=== PATIENT | male | born 1945 | race Caucasian/White ===

== ENCOUNTER 2024-03-03 19:55 | Inpatient (IN) | payer MEDICARE, SELFPAY ==
--- NOTE | ~2024-03-03 | CT_ITS ---
EXAMINATION: CT ABDOMEN AND PELVIS WITH CONTRAST CLINICAL INFORMATION: Epigastric pain. Distention. COMPARISON: None available. TECHNIQUE: Multidetector volumetric images were obtained from the superior aspect of the liver through the pubic symphysis following administration 85 mL of Omnipaque 350 intravenous contrast. Sagittal and coronal reformatted images were obtained on the technologist's workstation. Oral contrast: No This CT examination was performed using dose optimization techniques as appropriate, variously including the following: *Automated exposure control *Adjustment of mA and/or kV according to patient size (this includes techniques or standardized protocols for targeted exams where dose is matched to indication/reason for exam; i.e. extremities or head) *Use of iterative reconstruction technique DLP: 621 mGy-cm FINDINGS: LUNG BASES: Partial visualization of dense calcific plaque within the left anterior descending coronary artery LIVER, GALLBLADDER, AND BILIARY TREE: The liver is normal in size, shape, and attenuation. No focal hepatic lesion or biliary ductal dilatation is present. A radiodense gallstone measuring 1.2 cm in diameter is present in the neck of the gallbladder. Mild reticulation of the fat adjacent to the gallbladder is present and prominent submucosal enhancement of the gallbladder is noted. The gallbladder is distended. Findings are suspicious for acute cholecystitis. No dilated duct dilatation identified. PANCREAS: Unremarkable. SPLEEN: Unremarkable. ADRENAL GLANDS: Unremarkable. KIDNEYS AND URETERS: A 2.3 cm diameter rounded low-density focus is present in left kidney and is most consistent with a benign, simple cyst warranting additional imaging follow-up. BLADDER: Unremarkable. GASTROINTESTINAL TRACT: Normal appendix. No intestinal dilatation or mural thickening. No free intraperitoneal fluid or gas collections. Normal appearance of the stomach and duodenum. ABDOMINAL WALL: No significant hernia is appreciated. LYMPH NODES: Normal. VASCULAR: Moderate scattered calcific atherosclerosis PELVIC VISCERA: Normal appearance of the prostate and femoral vesicles. OSSEOUS STRUCTURES: Scattered subcentimeter well-circumscribed low-density foci (-50 Hounsfield unit) within the left and right iliac bodies. These regions demonstrate macroscopic fat density and may represent areas of fat deposition or intraosseous hemangiomas. These findings are benign in appearance. Similar appearing focus is present in the inferior aspect of the L3 vertebral body measuring 6 mm diameter and may represent a hemangioma. Similar focus is noted in the L2 vertebral body. CT/CT abdomen pelvis w IV con IMPRESSION: 1. Findings suspicious for acute cholecystitis. A 1.2 cm radiodense gallstone is present in the neck of the gallbladder. The gallbladder is distended with mild pericholecystic inflammatory changes. No biliary duct dilatation. 2. Normal appendix. No intestinal dilatation. No free intraperitoneal fluid or gas collections. 3. Partial visualization of dense calcific plaque within the left anterior descending coronary artery. Electronically signed by: Deandre Abarca MD 03/04/2024 03:55 AM [facility]
[2024-03-03 20:07] VITALS: BP 181/68; PULSE 70; RESP 16; O2SAT 99; BMI 26.6
--- NOTE | 2024-03-03 20:10 | ECG_ITS ---
Test Reason : CP Blood Pressure : / mmHG Vent. Rate : 061 BPM Atrial Rate : 061 BPM P-R Int : 156 ms QRS Dur : 088 ms QT Int : 400 ms P-R-T Axes : 036 -16 007 degrees QTc Int : 402 ms Sinus rhythm with occasional Premature ventricular complexes Otherwise normal ECG No previous ECGs available Referred By: Generic ED Physician Electronically Signed By:Ehsan Mccullough
[2024-03-03 20:28] LABS: MANUAL DIFF FLAG NO
[2024-03-03 20:32] LABS: Basophils Percent Auto 0.4 % (0-2); Eosinophils Absolute Auto 0.2 X10*3/uL (0.0-0.4); Eosinophils Percent Auto 1.8 % (0-4); Hemoglobin 11.2 g/dl (14.0-18.0); Imm Gran Abs Auto 0.03 X10*3/uL (0.00-0.03); Imm Gran Pct Auto 0.4 % (0.0-0.4); Lymphocytes Percent Auto 24.1 % (20-40); Mean Corpuscular HGB Conc 32.9 g/dl (31.0-36.0); Mean Corpuscular Hemoglobin 28.8 pg (27.0-33.0); Mean Corpuscular Volume 87.4 fL (80.0-98.0); Mean Platelet Volume 9.4 fL (9.4-12.4); Monocytes Absolute Auto 0.8 X10*3/uL (0.1-1.2); Monocytes Percent Auto 9.7 % (2-11); Neutrophils Absolute Auto 5.2 x10*3/uL (2.0-8.3); Neutrophils Percent Auto 63.6 % (45-73); Platelet Count 213 X10*3/uL (160-400); Red Blood Count 3.89 X10*6/uL (4.60-5.80); Red Cell Distribution Width 13.5 % (11.0-16.0); White Blood Count 8.1 X10*3/uL (4.8-10.8)
[2024-03-03 20:47] LABS: Alanine Aminotransferase 21 U/L (0-40); Albumin Level 4.3 g/dL (3.5-5.0); Alkaline Phosphatase 114 U/L (39-117); Anion Gap 12 (12-20); Aspartate Amino Transferase 33 U/L (5-37); Bilirubin Total 0.2 mg/dL (0.0-1.0); Blood Urea Nitrogen 27 mg/dL (9-16); Calcium 9.4 mg/dL (8.4-10.2); Carbon Dioxide 25 mmol/L (22-29); Chloride 108 mmol/L (96-108); Creatinine Clr Calc Pharmacy 63.7; Estimated Glomerular Filt Rate > 60; Glucose Random 129 mg/dL (60-115); Potassium 4.5 mmol/L (3.3-5.1); Sodium 140 mmol/L (135-145); Total Protein 7.1 g/dL (6.5-8.0)
[2024-03-03 20:55] LABS: Troponin-I High Sensitivity 4.3 ng/L (<3.5-35.0)
[2024-03-04] VITALS (12 sets, daily range): BP systolic 115–162; BP diastolic 53–84; PULSE 64–117; RESP 16–20; TEMP 36.6–37.7; O2SAT 93–98; BMI 29.9
--- NOTE | 2024-03-04 | ECG_ITS ---
Test Reason : tachy Blood Pressure : / mmHG Vent. Rate : 096 BPM Atrial Rate : 096 BPM P-R Int : 142 ms QRS Dur : 080 ms QT Int : 312 ms P-R-T Axes : 018 -25 013 degrees QTc Int : 394 ms Poor data quality Sinus rhythm with marked sinus arrhythmia Nonspecific ST abnormality Abnormal ECG When compared with ECG of 03-MAR-2024 20:09, Premature ventricular complexes are no longer Present Vent. rate has increased BY 35 BPM Referred By: Generic ED Physician Electronically Signed By:Ehsan Mccullough
--- NOTE | 2024-03-04 02:23 | PC.NURSE ---
Addendum entered by Emily Smith 03/04/24 02:36: pt threw up small amount of bile. shaking. made aware. bilat 20g iv established. pt remains axox4 speaking full clear sentences. skin warm and dry. Original Note: pt from wr to [id number], initial triage for R. lower chest pain which pt reports is now mid/umbilical abd pain and lower back pain. bp improved however now tachy. repeat ekg ordered and trop. MD cordero made aware and suggested for abdominal imaging. states will see pt at bedside.
--- NOTE | 2024-03-04 02:25 | ED_ITS ---
HPI - Chest Pain General Chief Complaint: Chest Pain Stated Complaint: Rib pain Time Seen by Provider: 03/04/24 02:25 Source: patient Mode of arrival: ambulatory Limitations: no limitations History of Present Illness ED Provider: Dr. Andrés Post HPI narrative: 78-year-old male with no significant past medical history who presents emergency department for evaluation of right upper quadrant and right-sided chest pain. Patient ate sausage in rice that around 11:30 hours for lunch. Patient ate ice cream at15:00 hours. He states that at 19:00 hours he then developed right- sided chest and abdominal pain. He states the pain was a sharp, constant pain that did not radiate to his back or shoulders. He states that he felt bloated. He states that since he has been here in the emergency department the pain is resolved but he still has a bloated sensation. He had 1 episode of vomiting in the emergency department and he states he does have nausea. He denied fever, chills, cough. He states that he walks 10 miles a day without having any chest pain. He denies shortness of breath or dyspnea on exertion. Related Data Allergies Allergy/AdvReac Type Severity Reaction Status Date / Time No Known Allergies Allergy Verified 03/03/24 20:08 Review of Systems 2 Review of Systems: Yes all other systems are reviewed and are negative [facility] Past Medical History [facility] Narrative: Social history: He denies tobacco use. He states that he rarely drinks alcohol. He denies drug use. Social History Social History Smoked in Last 30 Days: No Use of substances other than those prescribed or required for medical reasons: No Advance Directives: No Advance Directives Information Provided: Yes Do you have a plan to hurt others: No Plan Physical Exam 2 Vital Signs: Vital Signs: Last Vital Signs Temp 98.1 F 03/04/24 02:22 Pulse 84 03/04/24 02:47 Resp 20 03/04/24 02:22 BP 141/57 H 03/04/24 02:22 Pulse Ox 98 03/04/24 02:22 O2 Del Method Room Air 03/04/24 02:22 BMI result Body Mass Index 26.6 Vital signs revealed an elevated blood pressure of 141/57 and an elevated heart rate of 117. Exam: General: Awake, alert in no distress Head: Normocephalic, atraumatic EENT: PERRL, Lids normal, sclera normal, conjunctiva normal, nose normal , ears normal, throat without erythema or exudates Neck: Supple, no adenopathy Lung: breath sounds symmetric, no wheezing, rales or rhonchi Chest: symmetric movement, nontender Heart: regular rate and rhythm, normal S1, S2 no murmurs or rubs Abdomen: soft, mild right upper quadrant tenderness with a negative James sign, mild to moderate epigastric tenderness, abdomen appears to be distended , diastasis recti with sitting up, normoactive bowel sounds , no voluntary or involuntary guarding Back: no vertebral tenderness, no CVAT Extremities: no deformities, moves all extremities symmetrically Neuro: Awake, alert, oriented, normal speech, cranial nerves intact, moves all extremities symmetrically Psych: Pleasant, cooperative Medications Administered Discontinued Medications Generic Name Dose Route Start Last Admin Trade Name Freq PRN Reason Stop Dose Admin Sodium Chloride 1,000 mls @ 999 mls/hr 03/04/24 02:42 03/04/24 03:31 Ns IV 03/04/24 03:42 999 mls/hr .Q1H1M STA Administration Iohexol 85 ml 03/04/24 03:15 03/04/24 03:16 Iohexol 350 Mg/Ml 100 Ml Infus..Btl IV 03/04/24 03:16 85 ml ONCE ONE Administration Ondansetron HCl 4 mg 03/04/24 02:42 03/04/24 03:31 Ondansetron Hcl 4 Mg/2 Ml Vial IVPUSH 03/04/24 02:43 Not Given ONCE ONE Medical Decision Making Medical Decision Making MDM Narrative: 78-year-old male with no significant past medical history who presents emergency department for evaluation of right upper quadrant and right-sided chest pain. Patient ate sausage in rice that around 11:30 hours for lunch. Patient at ice cream at 15:00 hours. He states that at 19:00 hours he then developed right- sided chest and sharp abdominal pain with no radiation to his back or shoulder, he did feel bloated and had 1 episode of vomiting in the emergency department. Physical exam did reveal right upper quadrant tenderness otherwise was unremarkable. The patient did appear to be distended. Differential diagnosis: ?Includes but is not limited to pancreatitis, cholecystitis, biliary colic, gastritis, myocardial infarction, myocardial ischemia, bowel obstruction Course: 02:50 My interpretation patient's laboratory evaluation: WBC normal 8100. Normocytic anemia with an H&H of 11.2 and 34.0. Platelet count was normal 213,000. BUN was elevated at 27 with normal creatinine of 0.94. Glucose elevated 129. LFTs were normal. Troponin was 4.3. I ordered normal saline IV x1 L, Zofran 4 mg IV for nausea and CT scan of the abdomen pelvis with IV contrast for further evaluation of his symptoms. Patient was currently pain-free but still feels like his abdomen is distended. 04:38 Repeat troponin was unchanged at 4.4 which is reassuring suggesting the patient did not have myocardial infarction or myocardial injury is the cause of his chest pain. CT scan of the abdomen pelvis with IV contrast is concerning for acute cholecystitis with 1.2 cm gallstone in the neck of the gallbladder. I did discuss this patient's presentation over tiger text with the covering surgeon Dr. Moreno and she will admit the patient to her service for further treatment. Admission/Observation Consideration of admission/observation: Escalation of care including admission/observation considered (Yes) Consult Healthcare Provider Management of the patient was discussed with: Field Sampling Technician (Surgeon on-call, Dr. Moreno) Lab Data MDM Lab Attestation statement: I reviewed the patient's lab results. 03/03/24 20:24 03/03/24 20:24 Labs: Lab Results 03/03/24 03/04/24 Range/Units 20:24 02:35 WBC 8.1 (4.8-10.8) X10*3/uL RBC 3.89 L (4.60-5.80) X10*6/uL Hgb 11.2 L (14.0-18.0) g/dl Hct 34.0 L (42.0-52.0) % MCV 87.4 (80.0-98.0) fL MCH 28.8 (27.0-33.0) pg MCHC 32.9 (31.0-36.0) g/dl RDW 13.5 (11.0-16.0) % Plt Count 213 (160-400) X10*3/uL MPV 9.4 (9.4-12.4) fL Immature Gran % (Auto) 0.4 (0.0-0.4) % Neut % (Auto) 63.6 (45-73) % Lymph % (Auto) 24.1 (20-40) % [place] % (Auto) 9.7 (2-11) % Eos % (Auto) 1.8 (0-4) % Baso % (Auto) 0.4 (0-2) % Lymph # (Auto) 2.0 (1.2-4.9) X10*3/uL [place] # (Auto) 0.8 (0.1-1.2) X10*3/uL Eos # (Auto) 0.2 (0.0-0.4) X10*3/uL Baso # (Auto) 0.0 (0.0-0.2) X10*3/uL Abs Immat Gran (auto) 0.03 (0.00-0.03) X10*3/uL Absolute Neuts (auto) 5.2 (2.0-8.3) x10*3/uL Absolute Nucleated RBC 0.000 (0.0-0.012) X10*3/uL Nucleated RBC % (auto) 0.0 (0.0-0.2) /100WBC Sodium 140 (135-145) mmol/L Potassium 4.5 (3.3-5.1) mmol/L Chloride 108 (96-108) mmol/L Carbon Dioxide 25 (22-29) mmol/L Anion Gap 12 (12-20) BUN 27 H (9-16) mg/dL Creatinine 0.94 (0.5-1.4) mg/dL Estim Creat Clear Calc 63.7 Estimated GFR > 60 Random Glucose 129 H (60-115) mg/dL Calcium 9.4 (8.4-10.2) mg/dL Magnesium 2.0 (1.6-2.6) mg/dL Total Bilirubin 0.2 (0.0-1.0) mg/dL AST 33 (5-37) U/L ALT 21 (0-40) U/L Alkaline Phosphatase 114 (39-117) U/L Troponin I High Sens 4.3 4.1 (<3.5-35.0) ng/L Total Protein 7.1 (6.5-8.0) g/dL Albumin 4.3 (3.5-5.0) g/dL Lipase 31 (8-78) U/L Independent Interpretation I performed an independent interpretation of an: EKG Interpretation: EKG 1. Done at 20:09 hours is as follows: Normal sinus rhythm with a rate of 61, normal SD interval, QRS duration QTC interval, no ST segment elevations, no ST segment depressions, inverted T-wave in V1, no PACs, no PVCs EKG 2. Done at 02:28 hours is as follows: EKG has artifact in the baseline. Normal sinus rhythm with a rate of 96, no ST segment elevation, no ST segment depression, T-waves are difficult to evaluate secondary to artifact in the baseline, no PACs, no PVCs Radiology Impression Discussion of test interpretation with radiology: I have reviewed the radiologist's reading. Radiologist Impression: XR chest 1V IMPRESSION: Normal chest. Lungs clear. Electronically signed by: Deandre Abarca MD 03/04/2024 01:04 AM [place] [id number] [address] Scan Report Signed Patient: Mickey Dueñas MR#: [id number] : 1945 Acct:[id number] Age/Sex: 78 / M ADM Date: 03/04/24 Loc: HO.ED Attending Dr: Ordering Physician: Andrés Post MD Date of Service: 03/04/24 Procedure(s): CT abdomen pelvis w IV con Accession Number(s): [id number] cc: Christiano Lucas MD; Andrés Post MD~ EXAMINATION: CT ABDOMEN AND PELVIS WITH CONTRAST FINDINGS: LIVER, GALLBLADDER, AND BILIARY TREE: The liver is normal in size, shape, and attenuation. No focal hepatic lesion or biliary ductal dilatation is present. A radiodense gallstone measuring 1.2 cm in diameter is present in the neck of the gallbladder. Mild reticulation of the fat adjacent to the gallbladder is present and prominent submucosal enhancement of the gallbladder is noted. The gallbladder is distended. Findings are suspicious for acute cholecystitis. No dilated duct dilatation identified. PANCREAS: Unremarkable. SPLEEN: Unremarkable. ADRENAL GLANDS: Unremarkable. KIDNEYS AND URETERS: A 2.3 cm diameter rounded low-density focus is present in left kidney and is most consistent with a benign, simple cyst warranting additional imaging follow-up. BLADDER: Unremarkable. GASTROINTESTINAL TRACT: Normal appendix. No intestinal dilatation or mural thickening. No free intraperitoneal fluid or gas collections. Normal appearance of the stomach and duodenum. ABDOMINAL WALL: No significant hernia is appreciated. LYMPH NODES: Normal. VASCULAR: Moderate scattered calcific atherosclerosis PELVIC VISCERA: Normal appearance of the prostate and femoral vesicles. OSSEOUS STRUCTURES: Scattered subcentimeter well-circumscribed low-density foci (-50 Hounsfield unit) within the left and right iliac bodies. These regions demonstrate macroscopic fat density and may represent areas of fat deposition or intraosseous hemangiomas. These findings are benign in appearance. Similar appearing focus is present in the inferior aspect of the L3 vertebral body measuring 6 mm diameter and may represent a hemangioma. Similar focus is noted in the L2 vertebral body. IMPRESSION: 1. Findings suspicious for acute cholecystitis. A 1.2 cm radiodense gallstone is present in the neck of the gallbladder. The gallbladder is distended with mild pericholecystic inflammatory changes. No biliary duct dilatation. 2. Normal appendix. No intestinal dilatation. No free intraperitoneal fluid or gas collections. 3. Partial visualization of dense calcific plaque within the left anterior descending coronary artery. Electronically signed by: Deandre Abarca MD 03/04/2024 03:55 AM EST Discharge Plan Discharge Patient Disposition: Admitted As Inpatient Print Language: Cymraes
[2024-03-04 02:59] LABS: Troponin-I High Sensitivity 4.1 ng/L (<3.5-35.0)
[2024-03-04 03:14] LABS: Lipase 31 U/L (8-78)
[2024-03-04] MEDS: iohexoL 350 MG/ML 100 ML INFUS..BTL 85 ML IV (03:16)
[2024-03-04] MEDS: 0.9 % Sodium Chloride 1,000 ML 999 ML IV (03:31)
--- NOTE | 2024-03-04 06:01 | PC.NURSE ---
Sister Azul Dueñas [phone]
[2024-03-04] MEDS: Morphine Sulfate 4 MG/ML CARTRIDGE IVPUSH (06:49)
[2024-03-04] MEDS: ondansetron HCL 4 MG/2 ML VIAL IVPUSH (06:50)
[2024-03-04] MEDS: 0.9 % Sodium Chloride 1,000 ML 100 ML IVCONT (07:38)
--- NOTE | 2024-03-04 07:45 | P.HPGS_ITS ---
History of Present Illness History of Present Illness Date of Service: 03/04/24 <Sarahy Maharaj PA-C - Last Filed: 03/04/24 10:40> 03/04/24 <Mauricio Gatica MD - Last Filed: 03/04/24 10:35> Chief complaint: Abdo pain <Sarahy Maharaj PA-C - Last Filed: 03/04/24 10:40> Narrative: Mickey Dueñas is a 78 year old male without any known PMH who presented to the ED last night for abd pain. He reports he developed RUQ last night around 7pm. It was sharp in nature and nonradiating. It was associated with nausea, vomiting. He has never had an episode of pain like this before. He denies fevers, chills, diarrhea, back pain, sick contacts. Work up in the ED included CBC, BMP, LFTs. CT scan abd pelvis showed distended gallbladder with impacted gallstone at neck and gallbladder wall thickening. He reports continued pain this morning. He denies any PMH or daily medications. He has not seen his primary care provider in around 50 years. He however states he walks 10 miles daily without any shortness of breath, chest pain. <Sarahy Maharaj PA-C - Last Filed: 03/04/24 10:40> Review of Systems Constitutional: Constitutional: Denies chills and Denies fever(s) <Sarahy Maharaj PA-C - Last Filed: 03/04/24 10:40> ENT: Denies dizziness <Sarahy Maharaj PA-C - Last Filed: 03/04/24 10:40> Cardiovascular: Cardiovascular: Denies chest pain, Denies palpitations and Denies dyspnea <Sarahy Maharaj PA-C - Last Filed: 03/04/24 10:40> Respiratory: Respiratory: Denies cough and Denies dyspnea <ALEXA Moy Last Filed: 03/04/24 10:40> Gastrointestinal: Gastrointestinal: Reports as per HPI, Denies constipation and Denies diarrhea <ALEXA Moy Last Filed: 03/04/24 10:40> Integumentary/Breasts: Skin/Breast: Denies rash and Denies jaundice <ALEXA Moy Last Filed: 03/04/24 10:40> Neurologic: Denies dizziness <Sarahy Maharaj PA-C - Last Filed: 03/04/24 10:40> Endocrine: Endocrine: Denies palpitations <ALEXA Moy Last Filed: 03/04/24 10:40> PMFSH Social History Social History: Social History Patient Tobacco Use Status: Former Tobacco user Smoked in Last 30 Days: No Use of substances other than those prescribed or required for medical reasons: No Advance Directives: No Advance Directives Information Provided: Yes Do you have a plan to hurt others: No Plan Nutrition Risks: No Nutritional Risk <ALEAX Moy Last Filed: 03/04/24 10:40> Meds Allergies/Adverse reactions: Allergies Allergy/AdvReac Type Severity Reaction Status Date / Time No Known Allergies Allergy Verified 03/03/24 20:08 <Sarahy Maharaj PA-C - Last Filed: 03/04/24 10:40> Active Medications: Current Medications Acetaminophen (Acetaminophen 325 Mg Tablet) 650 mg PO Q6H PRN PRN Reason: Pain, Mild (Pain Scale 1-3), fever or headache Sodium Chloride (Ns) 1,000 mls @ 100 mls/hr IVCONT .Q10H [facility] Last Admin: 03/04/24 07:38 Dose: 100 mls/hr Piperacillin Sod/Tazobactam (Sod 3.375 gm/ Sodium Chloride) 50 mls @ 100 mls/hr IV Q6H [facility] Melatonin (Melatonin 3 Mg Tablet) 6 mg PO BEDTIME PRN PRN Reason: Insomnia Morphine Sulfate (Morphine Sulfate 2 Mg/Ml Cartridge) 2 mg IVPUSH RQ4H PRN; Protocol PRN Reason: Pain, Severe (Pain Scale 7-10) Ondansetron HCl (Ondansetron Hcl 4 Mg/2 Ml Vial) 4 mg IVPUSH Q8H PRN PRN Reason: Nausea and Vomiting Sodium Chloride (0.9 % Sodium Chloride Flush 3 Ml Syringe) 3 ml IVFLUSH QSHIFT [facility] <ALEXA Moy Last Filed: 03/04/24 10:40> Physical Exam Vital Signs: Vital Signs: Last Vital Signs Temp 99.9 F 03/04/24 04:00 Pulse 104 H 03/04/24 04:00 Resp 20 03/04/24 04:00 BP 162/74 H 03/04/24 04:00 Pulse Ox 96 03/04/24 04:00 O2 Del Method Room Air 03/04/24 04:00 BMI result Body Mass Index 26.6 <Sarahy Maharaj PA-C - Last Filed: 03/04/24 10:40> Const: General: comfortable, no acute distress and alert <Sarahy Maharaj PA-C [place] Last Filed: 03/04/24 10:40> Orientation/consciousness: patient oriented x3 <Sarahy Maharaj PA-C Last Filed: 03/04/24 10:40> Neck: Neck: Yes no JVD <Sarahy Maharaj PA-C Last Filed: 03/04/24 10:40> Resp: Effort & Inspection: normal respiratory effort <Sarahy Maharaj PA-C Aislinn Last Filed: 03/04/24 10:40> GI: Inspection: Yes normal to inspection and No scar <Sarahy Maharaj PA-C Last Filed: 03/04/24 10:40> Palpation (GI): Soft to palpation, Tenderness to palpation present (GI) in the RUQ and James's sign positive and no guarding <Sarahy Maharaj PA-C Last Filed: 03/04/24 10:40> Skin: General skin exam: no rashes or lesions noted and no jaundice <Sarahy Maharaj PA-C Last Filed: 03/04/24 10:40> Neuro: General: patient oriented x3 and moves all extremities <Sarahy Maharaj PA-C Last Filed: 03/04/24 10:40> Extrem: General: Yes no clubbing, cyanosis or edema <Sarahy Maharaj PA-C Last Filed: 03/04/24 10:40> Results Results Labs: Short CBC 03/03/24 Range/Units 20:24 WBC 8.1 (4.8-10.8) X10*3/uL Hgb 11.2 L (14.0-18.0) g/dl Hct 34.0 L (42.0-52.0) % Plt Count 213 (160-400) X10*3/uL BMP 03/03/24 20:24 Sodium 140 Potassium 4.5 Chloride 108 Carbon Dioxide 25 BUN 27 H Creatinine 0.94 Calcium 9.4 Liver Function 03/03/24 Range/Units 20:24 Total Bilirubin 0.2 (0.0-1.0) mg/dL AST 33 (5-37) U/L ALT 21 (0-40) U/L Alkaline Phosphatase 114 (39-117) U/L Albumin 4.3 (3.5-5.0) g/dL <ALEXA Moy Last Filed: 03/04/24 10:40> Abdomen CT scan report/results: report reviewed and image reviewed <ALEXA Moy Last Filed: 03/04/24 10:40> Assessment and Plan (1) Acute calculous cholecystitis: Status: Acute <ALEXA Moy Last Filed: 03/04/24 10:40> 78 year old male without PMH presenting with RUQ abd pain since last night with leukocytosis and impacted gallstone, gallbladder wall thickening on imaging consistent with acute cholecystitis. It was recommended to proceed with laparoscopic choelcystectomy. Risks, benefits, alternatives of laparoscopic possible open cholecystectomy were reviewed with the patient including but not limited to bleeding, infection, numbness, pain, poor healing, injury to the liver, bowel or bile ducts, leak, retained stones and the patient wishes to proceed.? Arrangements will be made for this.?All questions were answered. <Sarahy Maharaj PA-C - Last Filed: 03/04/24 10:40> 78 year old male without PMH presenting with RUQ abd pain since last night with leukocytosis and impacted gallstone, gallbladder wall thickening on imaging consistent with acute cholecystitis. It was recommended to proceed with laparoscopic choelcystectomy. Risks, benefits, alternatives of laparoscopic possible open cholecystectomy were reviewed with the patient including but not limited to bleeding, infection, numbness, pain, poor healing, injury to the liver, bowel or bile ducts, leak, retained stones and the patient wishes to proceed.? Arrangements will be made for this.?All questions were answered. Patient seen and exam. CT abdomen and pelvis reviewed as well. Patient found to have an impacted gallstone in the neck of the gallbladder with inflammatory changes suggestive of acute cholecystitis. Agree with the above assessment and plan. Discussed laparoscopic or possible open cholecystectomy including the risks, alternatives and benefits. He consents to a laparoscopic or possible open cholecystectomy and has been added onto the operative schedule for today. <Mauricio Gatica MD - Last Filed: 03/04/24 10:35> Quality Stroke Does the patient have a stroke diagnosis?: No <Sarahy Maharaj PA-C - Last Filed: 03/04/24 10:40> VTE Prior VTE?: No <Sarahy Maharaj PA-C - Last Filed: 03/04/24 10:40> VTE Risk Level:: Surgical - low <Sarahy Maharaj PA-C - Last Filed: 03/04/24 10:40> VTE Device Contraindication: N/A - Device Ordered <Sarahy Maharaj PA-C - Last Filed: 03/04/24 10:4 0> VTE Drug Contraindication: Treatment Not Indicated <Sarahy Maahraj PA-C - Last Filed: 03/04/24 10:40> Procedures Date of Service Date of Service: 03/04/24 <Sarahy Maharaj PA-C - Last Filed: 03/04/24 10:40> 03/04/24 <Mauricio Gatica MD - Last Filed: 03/04/24 10:35>
--- NOTE | 2024-03-04 08:40 | PHA.MEDREC ---
Pharmacy Consult ? Medication Reconciliation Pharmacy has completed the medication reconciliation. Spoke with pt at bedside, he is not any medications at home.
--- NOTE | 2024-03-04 10:35 | MHC.CM.PN ---
CM met with Patient at bedside, in the ED and addressed IMM with him, providing Patient with the original and a copy will be placed on the chart. Patient lives in a house with his and he required no services nor DME [employer]. Home/self care is the goal and CM has initiated and will follow for dc planning.PCP is Dr. Christiano Lucas and Patient's Sister will transport home.
[2024-03-04] MEDS: Piperacillin Sodium/Tazobactam 3.375 GM in 0.9 % Sodium Chloride 50 ML IV ×2 (12:43→17:22)
--- NOTE | 2024-03-04 13:15 | HO.ANESPROP2 ---
Documented by User: Sherry Delarosa MD 03/04/24 12:31 HPI - Anesthesia Eval Consult details Narrative: 78 yo male patient for Laparoscopic Cholecystectomy, possible open PMFSH Active Problems Active Problems: All Active Problems Acute calculous cholecystitis (Acute) Past Medical History Medical History (Updated 03/04/24 @ 13:31 by Adry Steve, RN) No pertinent past medical history Surgical History Surgical History (Updated 03/04/24 @ 13:31 by Adry Steve, RN) No pertinent past surgical history Social History Social History Are you a primary hospice patient care secretary to a significant other at home: No Do you presently have visiting nurse or other home services: No Patient Tobacco Use Status: Former Tobacco user Tobacco use type: Cigarette Smoked in Last 30 Days: No Use of substances other than those prescribed or required for medical reasons: No Have you been hit, kicked, punched, or otherwise hurt by someone within the past year? If so, by whom?: No Are you DNR?: No Advance Directives: No Advance Directives Information Provided: Yes (Daughter Jaymie (per patient)) Advance Directives on File: No Do you have a plan to hurt others: No Plan Recently lost weight without trying: No How much weight loss: Not applicable Eating poorly because of decreased appetite: No Nutrition screen score: 0 Nutrition Risks: No Nutritional Risk Poor oral hygiene: Yes (upper and lower full denture) service: No Meds Allergies Allergy/AdvReac Type Severity Reaction Status Date / Time No Known Allergies Allergy Verified 03/04/24 13:32 Active Medications: Current Medications Acetaminophen (Acetaminophen 325 Mg Tablet) 650 mg PO Q6H PRN PRN Reason: Pain, Mild (Pain Scale 1-3), fever or headache Sodium Chloride (Ns) 1,000 mls @ 100 mls/hr IVCONT .Q10H [facility] Last Admin: 03/04/24 07:38 Dose: 100 mls/hr Piperacillin Sod/Tazobactam (Sod 3.375 gm/ Sodium Chloride) 50 mls @ 100 mls/hr IV Q6H [facility] Melatonin (Melatonin 3 Mg Tablet) 6 mg PO BEDTIME PRN PRN Reason: Insomnia Morphine Sulfate (Morphine Sulfate 2 Mg/Ml Cartridge) 2 mg IVPUSH RQ4H PRN; Protocol PRN Reason: Pain, Severe (Pain Scale 7-10) Ondansetron HCl (Ondansetron Hcl 4 Mg/2 Ml Vial) 4 mg IVPUSH Q8H PRN PRN Reason: Nausea and Vomiting Sodium Chloride (0.9 % Sodium Chloride Flush 3 Ml Syringe) 3 ml IVFLUSH QSHIFT [facility] Last Admin: 03/04/24 07:48 Dose: Not Given Home Medications ?Medication ?Instructions ?Recorded ?Confirmed ?Last Taken ?Type No Known Home Meds 03/04/24 03/04/24 Unknown History Exam Height,Weight and Vital Signs: Height 5 ft 9 in Weight 81.647 kg Last Vital Signs Temp 98.2 F 03/04/24 12:11 Pulse 104 H 03/04/24 12:11 Resp 16 03/04/24 12:11 BP 151/84 H 03/04/24 12:11 Pulse Ox 96 03/04/24 12:11 O2 Del Method Room Air 03/04/24 12:11 Pertinent Lab Results Pertinent Lab Results: Laboratory Tests 03/03/24 03/04/24 20:24 02:35 WBC 8.1 RBC 3.89 L Hgb 11.2 L Hct 34.0 L MCV 87.4 MCH 28.8 MCHC 32.9 RDW 13.5 Plt Count 213 MPV 9.4 Immature Gran % (Auto) 0.4 Neut % (Auto) 63.6 Lymph % (Auto) 24.1 [place] % (Auto) 9.7 Eos % (Auto) 1.8 Baso % (Auto) 0.4 Lymph # (Auto) 2.0 [place] # (Auto) 0.8 Eos # (Auto) 0.2 Baso # (Auto) 0.0 Abs Immat Gran (auto) 0.03 Absolute Neuts (auto) 5.2 Absolute Nucleated RBC 0.000 Nucleated RBC % (auto) 0.0 Sodium 140 Potassium 4.5 Chloride 108 Carbon Dioxide 25 Anion Gap 12 BUN 27 H Creatinine 0.94 Estim Creat Clear Calc 63.7 Estimated GFR > 60 Random Glucose 129 H Calcium 9.4 Magnesium 2.0 Total Bilirubin 0.2 AST 33 ALT 21 Alkaline Phosphatase 114 Troponin I High Sens 4.3 4.1 Total Protein 7.1 Albumin 4.3 Lipase 31 Documented by User: Ruth Chin DO 03/04/24 14:42 [facility] Past Medical History Medical History (Updated 03/04/24 @ 13:31 by Adry Steve, RN) No pertinent past medical history Family History Family history of problems with anesthesia: No Surgical History Surgical History (Updated 03/04/24 @ 13:31 by Adry Steve RN) No pertinent past surgical history History of Problems with Anesthesia: No (never had anesthesia before) Social History Social History Are you a primary hospice patient care secretary to a significant other at home: No Do you presently have visiting nurse or other home services: No Patient Tobacco Use Status: Former Tobacco user Tobacco use type: Cigarette Smoked in Last 30 Days: No Use of substances other than those prescribed or required for medical reasons: No Have you been hit, kicked, punched, or otherwise hurt by someone within the past year? If so, by whom?: No Are you DNR?: No Advance Directives: No Advance Directives Information Provided: Yes (Daughter Jaymie (per patient)) Advance Directives on File: No Do you have a plan to hurt others: No Plan Recently lost weight without trying: No How much weight loss: Not applicable Eating poorly because of decreased appetite: No Nutrition screen score: 0 Nutrition Risks: No Nutritional Risk Poor oral hygiene: Yes (upper and lower full denture) service: No Meds Allergies Allergy/AdvReac Type Severity Reaction Status Date / Time No Known Allergies Allergy Verified 03/04/24 13:32 Home Medications ?Medication ?Instructions ?Recorded ?Confirmed ?Last Taken ?Type No Known Home Meds 03/04/24 03/04/24 Unknown History Exam Exam Date and Time: 03/04/24 1315 Airway Mallampati Class: II TM Dist: >3cm Neck ROM: Full Loose/Missing/Broken Teeth: Yes (edentulous) Heart: S1S2 Lungs: CTAB Assessment and Plan Assessment Anesthesia Assessment: Anesthesia Plan Discussed and Chart Reviewed Final Anesthetic Review Family History of Problems with Anesthesia: No History of Problems with Anesthesia: No (never had anesthesia before) NPO: Yes ASA Class: I Final Preanesthetic Review: No Changes in Pt Med Stat, Meds/Allgs Chart Reviewed, Consent Obtained/Reviewed and Anes Risks/Benef Reviewed Patient Risk: Low Procedure Risk: Low Anesthetic Plan Anesthetic Plan: GA and Agree w/ Assess. and Plan Disposition: Standard PACU
[2024-03-04] MEDS: Lactated Ringers 1,000 ML 80 ML IVCONT (13:31)
--- NOTE | 2024-03-04 15:09 | W.PM.OPN ---
Operative Note Operative Note Date of Service: 03/04/24 Narrative: Preoperative diagnosis: Acute cholecystitis, cholelithiasis Postoperative diagnosis: Same Procedure: Laparoscopic cholecystectomy Surgeon: Mauricio Gatica MD Power System Engineer: TRAY Moy Anesthesia: General endotracheal Indications for procedure: 78-year-old male presenting with complaints of abdominal pain in the right upper quadrant radiating to the back. Patient was noted to be tender in the right upper quadrant with a positive James sign. CT abdomen and pelvis revealed an inflamed and distended gallbladder with a thickened gallbladder wall and a gallstone at the neck of the gallbladder consistent with acute cholecystitis due to cholelithiasis. Operative findings: Markedly inflamed gallbladder with purulent bile and a large gallstone at the neck Specimen: gallbladder Estimated blood loss: 20 mL Complications: None Procedure details: Patient was brought to the OR and placed in a supine position. After administering general anesthesia the patient's abdomen was prepped with ChloraPrep and draped in a sterile fashion. A surgical time-out was called the consent confirmed. Patient received preoperative antibiotics and Venodyne boots were in place. Local anesthesia consisting of 0.5% Sensorcaine without epinephrine was infiltrated in a periumbilical region. A 5 mm incision was made above the umbilicus in a transverse fashion. The Veress needle was then inserted while elevating abdominal cavity with towel clips. After positive drop test the abdomen was insufflated to a pressure of 15 mm of mercury. The Veress needle was then removed and a 5 mm trocar inserted. The camera was inserted in the abdomen explored. A 12 mm trocar was then placed in the epigastrium. Two 5 mm trocars placed in the right upper quadrant by the assistant chief train dispatcher. The patient was placed in reverse Trendelenburg positioning and rotated to the left. The gallbladder was grasped with the fundus and retracted cephalad by the assistant chief train dispatcher. The infundibulum was then grasped and retracted away from the liver bed, also by the assistant chief train dispatcher. The Dolphin dissected was then used by the surgeon to dissect the peritoneum off the infundibulum to reveal the junction with the cystic duct. Cystic artery was noted slightly medial and posterior to the cystic duct. After obtaining a critical view the cystic duct was doubly clipped and divided. The cystic artery was then doubly clipped and divided. The gallbladder was then dissected off the liver bed using electrocautery with an L hook. Hemostasis was assured all times using the electrocautery. When the gallbladder is completely dissected off the liver bed was placed in an Endo-Catch bag and brought out through the epigastric incision. The gallbladder was sent to pathology for further examination. The abdomen was then re-examined. The liver bed was irrigated and suctioned dry. Surgicel was applied to the liver bed and a large Bishop-Tijerina drain placed in the gallbladder fossa and brought out through the lateral trocar site. This was then connected to bulb suctioned. No bleeding or bile leak could be identified. CO2 was then evacuated and all trocars removed. Fascia was closed at the epigastric incision using a [id number] 0 Polysorb suture. Skin was closed in all incisions using a subcuticular 4 0 Polysorb suture by both the surgeon and assistant chief train dispatcher. Sterile dressings consisting of Steri-Strips, 2 x 2 gauze, and Tegaderm were then applied. The patient tolerated the procedure well. Sponge instrument and needle counts reported as correct. The patient was transferred to PACU in stable condition.
[2024-03-04] MEDS: 0.9 % Sodium Chloride Flush 3 ML SYRINGE IVFLUSH (16:33)
[2024-03-04] MEDS: Dextrose 5 % and Lactated Ring 1,000 ML 80 ML IVCONT (16:33)
[2024-03-05] MEDS: Piperacillin Sodium/Tazobactam 3.375 GM in 0.9 % Sodium Chloride 50 ML IV ×5 (00:03→23:35)
[2024-03-05 03:33] VITALS: BP 112/57; PULSE 81; RESP 17; TEMP 36.7; O2SAT 92
[2024-03-05] MEDS: Dextrose 5 % and Lactated Ring 1,000 ML 80 ML IVCONT ×2 (05:16→18:02)
[2024-03-05] MEDS: HYDROmorphone HCl 0.5 MG/0.5 ML SYRINGE IVPUSH (05:25)
[2024-03-05 06:45] LABS: MANUAL DIFF FLAG NO
[2024-03-05 06:55] LABS: Basophils Percent Auto 0.2 % (0-2); Hematocrit 31.3 % (42.0-52.0); Hemoglobin 10.1 g/dl (14.0-18.0); Imm Gran Abs Auto 0.06 X10*3/uL (0.00-0.03); Imm Gran Pct Auto 0.5 % (0.0-0.4); Lymphocytes Absolute Auto 0.7 X10*3/uL (1.2-4.9); Lymphocytes Percent Auto 5.4 % (20-40); Mean Corpuscular HGB Conc 32.3 g/dl (31.0-36.0); Mean Corpuscular Hemoglobin 28.4 pg (27.0-33.0); Mean Corpuscular Volume 87.9 fL (80.0-98.0); Mean Platelet Volume 9.9 fL (9.4-12.4); Monocytes Absolute Auto 0.6 X10*3/uL (0.1-1.2); Monocytes Percent Auto 4.3 % (2-11); Neutrophils Absolute Auto 11.4 x10*3/uL (2.0-8.3); Neutrophils Percent Auto 89.6 % (45-73); Platelet Count 175 X10*3/uL (160-400); Red Blood Count 3.56 X10*6/uL (4.60-5.80); Red Cell Distribution Width 13.9 % (11.0-16.0); White Blood Count 12.7 X10*3/uL (4.8-10.8)
--- NOTE | 2024-03-05 07:41 | P.PNGS_ITS ---
Subjective Subjective Date of Service: 03/05/24 <Sarahy Maharaj PA-C - Last Filed: 03/05/24 07:46> 03/05/24 <Mauricio Gatica MD - Last Filed: 03/05/24 08:02> Interval history: Reports incisional pain this morning, comfortable with dilaudid. Did not eat anything last night due to pain. <Sarahy Maharaj PA-C - Last Filed: 03/05/24 07:46> Physical Exam 2 Vital Signs: Vital Signs: Last Vital Signs Temp 98.1 F 03/05/24 03:33 Pulse 81 03/05/24 03:33 Resp 17 03/05/24 03:33 BP 112/57 L 03/05/24 03:33 Pulse Ox 92 03/05/24 03:33 O2 Del Method Nasal Cannula 03/04/24 16:00 O2 Flow Rate 2 03/04/24 16:00 BMI result Body Mass Index 29.9 <Sarahy Maharaj PA-C - Last Filed: 03/05/24 07:46> Const: General: comfortable, no acute distress and alert <Sarahy Maharaj PA-C - Last Filed: 03/05/24 07:46> Orientation/consciousness: patient oriented x3 <Sarahy Maharaj PA-C - Last Filed: 03/05/24 07:46> Resp: Effort & Inspection: normal respiratory effort <Sarahy Maharaj PA-C - Last Filed: 03/05/24 07:46> GI: Other: AVEL drain scant sanguineous output <Sarahy Maharaj PA-C - Last Filed: 03/05/24 07:46> Inspection: Yes distended and Yes incision (dressing c/d/i) <ALEXA Moy Last Filed: 03/05/24 07:46> Palpation (GI): Soft to palpation, Tenderness to palpation present (GI) (mild incisional) and no guarding <ALEXA Moy Last Filed: 03/05/24 07:46> Skin: General skin exam: no rashes or lesions noted and no jaundice < ALEXA Moy Last Filed: 03/05/24 07:46> Neuro: General: patient oriented x3 <Sarahy Maharaj PA-C - Last Filed: 03/05/24 07:46> Objective Data Active Medications Acetaminophen (Acetaminophen 325 Mg Tablet) 650 mg PO Q6H PRN PRN Reason: Pain, Mild (Pain Scale 1-3), fever or headache Hydromorphone HCl (Hydromorphone Hcl 0.5 Mg/0.5 Ml Syringe) 0.5 mg IVPUSH Q3H PRN; Protocol PRN Reason: Pain, Severe (Pain Scale 7-10) Last Admin: 03/05/24 05:25 Dose: 0.5 mg Documented By: CAL Piperacillin Sod/Tazobactam (Sod 3.375 gm/ Sodium Chloride) 50 mls @ 100 mls/hr IV Q6H [facility] Last Infusion: 03/05/24 05:55 Dose: Infused Documented By: CAL Dextrose/Lactated Ringer's ([id number]) 1,000 mls @ 80 mls/hr IVCONT .[id number] [facility] Last Admin: 03/05/24 05:16 Dose: 80 mls/hr Documented By: CAL Melatonin (Melatonin 3 Mg Tablet) 6 mg PO BEDTIME PRN PRN Reason: Insomnia Ondansetron HCl (Ondansetron Hcl 4 Mg/2 Ml Vial) 4 mg IVPUSH Q8H PRN PRN Reason: Nausea and Vomiting Oxycodone HCl (Oxycodone Hcl Immed Release 5 Mg Tablet) 5 mg PO Q6H PRN PRN Reason: Pain, Moderate(Pain Scale 4-6) Sodium Chloride (0.9 % Sodium Chloride Flush 3 Ml Syringe) 3 ml IVFLUSH QSHIFT [facility] Last Admin: 03/05/24 00:08 Dose: Not Given Documented By: CAL Non-Admin Reason: IV Running <Sarahy Maharaj PA-C - Last Filed: 03/05/24 07:46> Labs CBC & Chem 7: 03/05/24 05:25 03/03/24 20:24 <Sarahy Maharaj PA-C - Last Filed: 03/05/24 07:46> Labs: Laboratory Results - last 24 hr 03/05/24 05:25 MCV 87.9 MCH 28.4 MCHC 32.3 RDW 13.9 Plt Count 175 MPV 9.9 Immature Gran % (Auto) 0.5 H Neut % (Auto) 89.6 H Lymph % (Auto) 5.4 L [place] % (Auto) 4.3 Eos % (Auto) 0.0 Baso % (Auto) 0.2 Lymph # (Auto) 0.7 L [place] # (Auto) 0.6 Eos # (Auto) 0.0 Baso # (Auto) 0.0 Abs Immat Gran (auto) 0.06 H Absolute Neuts (auto) 11.4 H Absolute Nucleated RBC 0.000 Nucleated RBC % (auto) 0.0 <Sarahy Maharaj PA-C - Last Filed: 03/05/24 07:46> Procedures Date of Service Date of Service: 03/05/24 <Sarahy Maharaj PA-C - Last Filed: 03/05/24 07:46> 03/05/24 <Mauricio Gatica MD - Last Filed: 03/05/24 08:02> Progress Note: A&P Assessment and plan (1) Acute calculous cholecystitis: Status: Acute <Sarahy Maharaj PA-C - Last Filed: 03/05/24 07:46> (2) S/P laparoscopic cholecystectomy: Status: Acute <Sarahy Maharaj PA-C - Last Filed: 03/05/24 07:46> Assessment and Plan: POD #1 s/p lap wiliam. Doing fairly well post op. VSS- has been afebrile >12h. Abd benign with clean dressings, appropriate post op tenderness, AVEL drain scant sanguineous drainage. Diet as tolerated. Encouraged increasing activity this morning, incentive spirometer. Possibly home later today or tomorrow if tolerating solid diet and comfortable on oral analgesics. Will remove AVEL drain prior. Patient comfortable with plan. <Sarahy Maharaj PA-C - Last Filed: 03/05/24 07:46> POD #1 s/p lap wiliam. Doing fairly well post op. VSS- has been afebrile >12h. Abd benign with clean dressings, appropriate post op tenderness, AVEL drain scant sanguineous drainage. Diet as tolerated. Encouraged increasing activity this morning, incentive spirometer. Possibly home later today or tomorrow if tolerating solid diet and comfortable on oral analgesics. Will remove AVEL drain prior. Patient comfortable with plan. Patient feels improved this morning but has not eaten yet. Pain is better controlled he denies nausea or vomiting. He has been out of bed and ambulating already. Agree with the above assessment and plan. Continue IV antibiotics (Zosyn). <Mauricio Gatica MD - Last Filed: 03/05/24 08:02> Time Spent With Patient Time: Total time managing care of this patient today ____ minutes. <Sarahy Maharaj PA-C - Last Filed: 03/05/24 07:46> Quality Stroke Does the patient have a stroke diagnosis?: No <Sarahy Maharaj PA-C - Last Filed: 03/05/24 07:46> VTE Prior VTE?: No <Sarahy Maharaj PA-C - Last Filed: 03/05/24 07:46> VTE Risk Level:: Surgical - low <Sarahy Maharaj PA-C - Last Filed: 03/05/24 07:46> VTE Device Contraindication: N/A - Device Ordered <Sarahy Maharaj PA-C - Last Filed: 03/05/24 07:46> VTE Drug Contraindication: Treatment Not Indicated <Sarahy Maharaj PA-C - Last Filed: 03/05/24 07:46>
[2024-03-05 07:42] VITALS: BP 119/60; PULSE 79; RESP 20; TEMP 36.7; O2SAT 89
--- NOTE | 2024-03-05 08:21 | HO.POSTANES ---
Post Anesthesia Evaluation Post Anesthesia Evaluation Date of Service: 03/05/24 Vital Signs: Vital Signs Temp Pulse Resp BP Pulse Ox O2 Del Method 03/05/24 07:42 98.1 F 79 20 119/60 89 L Room Air 03/05/24 03:33 98.1 F 81 17 112/57 L 92 03/04/24 20:37 99.4 F 64 16 128/61 96 Anesthesia: General Endotracheal-GETA Mental Status: Awake Pain Control: Satisfactory Nausea/Vomiting: None Hydration: Adequate Anesthesia-Related Issues: No Anes. Related Issues
[2024-03-05] MEDS: Docusate Sodium 100 MG CAPSULE PO ×2 (08:56→20:01)
[2024-03-05] MEDS: 0.9 % Sodium Chloride Flush 3 ML SYRINGE IVFLUSH ×3 (08:57→20:02)
[2024-03-05 15:29] VITALS: BP 140/65; PULSE 104; RESP 20; TEMP 36.8; O2SAT 95
[2024-03-05 19:13] VITALS: BP 132/60; PULSE 88; RESP 17; TEMP 36.8; O2SAT 95
[2024-03-06 03:17] VITALS: BP 138/68; PULSE 83; RESP 17; TEMP 36.1; O2SAT 95
[2024-03-06] MEDS: Piperacillin Sodium/Tazobactam 3.375 GM in 0.9 % Sodium Chloride 50 ML IV (05:38)
[2024-03-06] MEDS: Dextrose 5 % and Lactated Ring 1,000 ML 80 ML IVCONT (05:38)
[2024-03-06 07:42] VITALS: BP 154/72; PULSE 81; RESP 17; TEMP 36.9; O2SAT 94
--- NOTE | 2024-03-06 08:09 | P.PNGS_ITS ---
Subjective Subjective Date of Service: 03/06/24 Interval history: Feels much improved this morning. Denies any abd pain. Denies difficulty breathing. OOB and ambulated yesterday without difficulty. Tolerating solid diet. Passing flatus but no BM. Would like to go home. Physical Exam 2 Vital Signs: Vital Signs: Last Vital Signs Temp 98.4 F 03/06/24 07:42 Pulse 81 03/06/24 07:42 Resp 17 03/06/24 07:42 BP 154/72 H 03/06/24 07:42 Pulse Ox 94 03/06/24 07:42 O2 Del Method Room Air 03/06/24 07:42 O2 Flow Rate 1.5 03/06/24 03:17 BMI result Body Mass Index 29.9 Const: General: comfortable, no acute distress and alert O rientation/consciousness: patient oriented x3 Resp: Effort & Inspection: normal respiratory effort GI: Inspection: Yes distended (mild, improved ) and Yes incision (clean) P alpation (GI): Soft to palpation, nontender and no guarding Skin: General skin exam: no rashes or lesions noted and no jaundice Neuro: General: patient oriented x3 and moves all extremities Objective Data Active Medications Acetaminophen (Acetaminophen 325 Mg Tablet) 650 mg PO Q6H PRN PRN Reason: Pain, Mild (Pain Scale 1-3), fever or headache Docusate Sodium (Docusate Sodium 100 Mg Capsule) 100 mg PO BID COUNT INCLUDES THE [facility] Last Admin: 03/05/24 20:01 Dose: 100 mg Documented By: CAL Hydromorphone HCl (Hydromorphone Hcl 0.5 Mg/0.5 Ml Syringe) 0.5 mg IVPUSH Q3H PRN; Protocol PRN Reason: Pain, Severe (Pain Scale 7-10) Last Admin: 03/05/24 05:25 Dose: 0.5 mg Documented By: CAL Piperacillin Sod/Tazobactam (Sod 3.375 gm/ Sodium Chloride) 50 mls @ 100 mls/hr IV Q6H COUNT [facility]CLUDES THE [facility] Last Infusion: 03/06/24 06:15 Dose: Infused Documented By: CAL Melatonin (Melatonin 3 Mg Tablet) 6 mg PO BEDTIME PRN PRN Reason: Insomnia Ondansetron HCl (Ondansetron Hcl 4 Mg/2 Ml Vial) 4 mg IVPUSH Q8H PRN PRN Reason: Nausea and Vomiting Oxycodone HCl (Oxycodone Hcl Immed Release 5 Mg Tablet) 5 mg PO Q6H PRN PRN Reason: Pain, Moderate(Pain Scale 4-6) Sodium Chloride (0.9 % Sodium Chloride Flush 3 Ml Syringe) 3 ml IVFLUSH QSHIFT [facility] Last Admin: 03/05/24 20:02 Dose: 3 ml Documented By: CAL Labs 03/05/24 05:25 03/03/24 20:24 Procedures Date of Service Date of Service: 03/06/24 Progress Note: A&P Assessment and plan (1) S/P laparoscopic cholecystectomy: Status: Acute (2) Acute calculous cholecystitis: Status: Acute Plan POD #2 s/p lap wiliam. Continues to do well post op, tolerating solid diet and ambulating without difficulty. VSS. Abd less distended this am, incisions clean. Drain removed yesterday uneventfully. He is hemodynamically stable and ready for dc to home today. F/u in office in 1 week. Patient comfortable with plan. Time Spent With Patient Time: Total time managing care of this patient today ____ minutes. Quality Stroke Does the patient have a stroke diagnosis?: No VTE Prior VTE?: No VTE Risk Level:: Surgical - low VTE Device Contraindication: N/A - Device Ordered VTE Drug Contraindication: Treatment Not Indicated
[2024-03-06] MEDS: Docusate Sodium 100 MG CAPSULE PO (08:31)
[2024-03-06] MEDS: 0.9 % Sodium Chloride Flush 3 ML SYRINGE IVFLUSH (08:32)
--- NOTE | 2024-03-06 08:37 | MHC.CM.PN ---
IMM 03/04/24 Patient is discharged to home self care. His sister will provide transportation home.
--- NOTE | 2024-03-06 11:21 | PM.DS ---
DS: Providers Provider Date of Service: 03/06/24 Date of admission: 03/04/24 06:44 Date of discharge: 03/06/24 Primary care physician: Christiano Lucas MD Attending physician on admission: Mauricio Gatica Attending physician on discharge: Mauricio Gatica DS: Diagnosis Discharge Diagnosis (1) S/P laparoscopic cholecystectomy: Status: Acute (2) Acute calculous cholecystitis: Status: Acute DS: Summary Hospital Course Hospital Course: HPI AT ADMISSION: Mickey Dueñas is a 78 year old male without any known PMH who presented to the ED last night for abd pain. He reports he developed RUQ last night around 7pm. It was sharp in nature and nonradiating. It was associated with nausea, vomiting. He has never had an episode of pain like this before. He denies fevers, chills, diarrhea, back pain, sick contacts. Work up in the ED included CBC, BMP, LFTs. CT scan abd pelvis showed distended gallbladder with impacted gallstone at neck and gallbladder wall thickening. He reports continued pain this morning. He denies any PMH or daily medications. He has not seen his primary care provider in around 50 years. He however states he walks 10 miles daily without any shortness of breath, chest pain. HOSPITAL COURSE: The patient was admitted to the surgical service for further treatment of the acute cholecystitis. He elected to proceed with laparoscopic cholecystectomy, possible open. He was added onto the OR schedule for that day. On 03/04/24, a laparoscopic cholecystectomy was performed by Dr. Gatica without complication. The patient tolerated the procedure well. He had an uncomplicated recovery course. He remained inpatient until POD #2 for pain control, increasing activity. On the day of discharge, he felt well and was tolerating a solid diet without nausea or vomiting, had good pain control and was ambulating without difficulty. He was hemodynamically stable. His abdomen was benign with appropriate post op tenderness and clean incisions. His AVEL drain output was nonbilious and scant and was removed. He felt ready for discharge. He was discharged to home on 03/06/24 in stable condition. He is to follow up in the office in 1 week. Status at Discharge Functional status at discharge: independent ambulation Overall status at discharge: patient is progressing back to baseline Time Attestation Discharge Coordination Time (in mins): 30 Quality: Safe Use of Opioids Does Pt have an Active Cancer Diagnosis on the Problem List?: No Quality: Stroke Does the patient have a stroke diagnosis?: No Physical Exam Vital Signs: Vital Signs: Last Vital Signs Temp 98.4 F 03/06/24 07:42 Pulse 81 03/06/24 07:42 Resp 17 03/06/24 07:42 BP 154/72 H 03/06/24 07:42 Pulse Ox 94 03/06/24 07:42 O2 Del Method Room Air 03/06/24 07:42 O2 Flow Rate 1.5 03/06/24 03:17 BMI result Body Mass Index 29.9 Const: General: comfortable, no acute distress and alert Orientation/consciousness: patient oriented x3 Resp: Effort & Inspection: normal respiratory effort and no respiratory distress GI: Inspection: Yes distended (mild, soft) and Yes incision (clean, drain removal site dressing clean and intact) Palpation (GI): Soft to palpation, nontender and no guarding Skin: General skin exam: no rashes or lesions noted and no jaundice Neuro: General: patient oriented x3 and moves all extremities DS: Data Data Completed and Pending Pending studies at discharge: Pending at discharge 03/04/24 14:43 Surgical [PTH] Routine Discharge Plan Discharge Anticipated Discharge Date/Time: 03/05/24 13:00 Patient Disposition: Home, Self-Care Discharge Diagnosis: acute cholecystitis, s/p laparoscopic cholecystectomy Referrals: Mauricio Gatica MD [Physician] - 1 Week Po,Christiano Freeman MD [Primary Care Provider] - 1 Week Discharge Medications: New docusate sodium [Colace] 100 mg capsule 100 mg PO BID Qty: 30 0RF oxycodone 5 mg tablet 5 mg PO Q4H PRN (Reason: pain (scale score 7-10)) Qty: 24 0RF Rx Instructions: Partial Fill upon patient request. Discharge Orders: Discharge Order (Routine); Ordered 03/06/24 Ordered By: Mauricio Gatica Diet: Low fat, low cholesterol Activity on Discharge: No heavy lifting Stand Alone Forms: Patient Portal Discharge page Print Language: Setswana Activity Restrictions/Additional Instructions: If the incision area is tender, you may apply an ice pack for short intervals (No more than 20 minutes on, followed by at least 20 minutes off). Do not apply heat. Do not use creams, lotions, or topical antibiotics. Ok to shower. Remove clear dressings 3 days following your procedure. You have steri strips (small white cloth strips) covering your incision- these will fall off ~1 week. No heavy lifting (>10lbs) or strenuous activity! Take Tylenol Extra-strength 1-2 tabs every 6 hours for the first day, then as needed. Oxycodone every 6-8 hours as needed for pain. Colace 100 mg every day as needed for constipation. Follow up in office with Dr. Gatica in 1 week. ([phone]) Call Your Doctor If: -Your temperature exceeds 101.5? F -You experience excessive pain or swelling -You have an unexpected reaction to medication -You have excessive bleeding -You experience continued vomiting/nausea -Your incision begins to separate -Your incision shows signs of infection such as increased redness, swelling, excessive pain, drainage (light blood or clear fluid is normal) or heat Care Plan Goals: Return to baseline health and resume normal activities following recovery period. Health Concerns: acute cholecystitis Plan of Treatment: s/p laparoscopic cholecystectomy f/u in office in 1 week Assessment: Doing well post op. Discharge Date/Time: 03/06/24 09:39
== END 2024-03-06 09:39 | disposition home or self-care (01) | DRG 419 ==
LOC: HO.ED 03-04 04:44 → HO.EDOVER 03-04 06:53 → HO.S3 03-04 15:01
PROVIDERS: Admitting Provider Surgery; Emergency Provider Emergency Medicine Emergency Medical Services; PCP Internal Medicine; Visit Provider Surgery
PROC: 0FT44ZZ Resection of Gallbladder, Percutaneous Endoscopic Approach (ICD-10-PCS; CPT 47562; principal; 2024-03-04 13:30)
DX: K80.00 Calculus of gallbladder with acute cholecystitis without obstruction (principal); Z87.891 Personal history of nicotine dependence
CPT/HCPCS: 47562; 36415; 74177; 80053; 83690; 83735; 84484; 85025; 88304; 93005; 99221; 99285; J0131; J0665; J1171; J2003; J2270; J2405; J2543; J2704; J3010; J7120; Q9967

== ENCOUNTER → 2024-03-03 20:10 | Outpatient (BNV) | payer MEDICARE, SELFPAY | PROVIDERS: Admitting Provider Surgery; Emergency Provider Emergency Medicine Emergency Medical Services; PCP Internal Medicine; Visit Provider Internal Medicine Cardiovascular Disease | DX: R94.31 Abnormal electrocardiogram [ECG] [EKG] (principal) | CPT/HCPCS: 93010 ==

== ENCOUNTER → 2024-03-04 02:28 | Outpatient (BNV) | payer MEDICARE, SELFPAY | PROVIDERS: Admitting Provider Surgery; Emergency Provider Emergency Medicine Emergency Medical Services; PCP Internal Medicine; Visit Provider Internal Medicine Cardiovascular Disease | DX: R94.31 Abnormal electrocardiogram [ECG] [EKG] (principal) | CPT/HCPCS: 93010 ==

== ENCOUNTER → 2024-03-04 06:44 | Outpatient (BNV) | payer MEDICARE, SELFPAY | PROVIDERS: Admitting Provider Surgery; Emergency Provider Emergency Medicine Emergency Medical Services; PCP Internal Medicine; Visit Provider Surgery | DX: Z90.49 Acquired absence of other specified parts of digestive tract (principal); K80.00 Calculus of gallbladder with acute cholecystitis without obstruction | CPT/HCPCS: 47562; 99024; 99222 ==

== ENCOUNTER 2024-03-17 14:46 | Outpatient (AMB) | payer MEDICARE, SELFPAY ==
--- NOTE | 2024-03-17 14:58 | A.OFFVIS_ITS ---
Vital Signs 03/17/24 15:00 Height 5 ft 9 in Weight 186 lb 6 oz BMI 27.5 BP 144/67 H Blood Pressure Location Lt brachial Position Sitting Pulse 80 Intake Visit Reasons: s/p Cholecystectomy Laparoscopic Intake Note: Patient is seen in office for post op assessment post laparoscopic cholecystectomy. Pt c/o: denies redness, discharge or any concerns Full Stack Web Developer Required: No Accompanied by: Spouse Allergies No Known Allergies Allergy (Verified 03/17/24 15:00) HPI Comments Details: 78-year-old male patient returning 1 week following laparoscopic cholecystectomy for acute cholecystitis. He tolerated the procedure well and is feeling well today. He denies any nausea, vomiting, fever or chills. He is eating well in his bowels are functioning fine. [facility] Medical History No pertinent past medical history Surgical History S/P laparoscopic cholecystectomy (03/04/24) No pertinent past surgical history Social History Household Members: Family Housing: House Are you a primary care asst to a significant other at home: No Do you presently have visiting nurse or other home services: No Patient Tobacco Use Status: Former Tobacco user Tobacco use type: Cigarette service: No Physical Exam Vital Signs: Last Vital Signs Pulse 80 03/17/24 15:00 BP 144/67 H 03/17/24 15:00 BMI result Body Mass Index 27.5 Const General: comfortable Nutritional Appearance: well nourished Orientation/consciousness: patient oriented x3 Resp Effort & Inspection: normal respiratory effort, no audible wheezes, no cough and no respiratory distress GI Other: Trocar incisions are clean, dry, and intact without redness or discharge. No hernia noted with Valsalva maneuvers. Skin Other: Warm, dry, no rashes Neuro General: patient oriented x3 Assessment & Plan Assessment & Plan (1) Acute calculous cholecystitis: Code(s): K80.00 - Calculus of gallbladder with acute cholecystitis without obstruction Category: Medical (2) S/P laparoscopic cholecystectomy: Onset Date: 03/04/24 Comment: Mauricio Gatica MD Code(s): Z90.49 - Acquired absence of other specified parts of digestive tract Category: Surgical Plan Patient returns 1 week following laparoscopic cholecystectomy for acute cholecystitis. He feels well and denies any ongoing abdominal symptoms. His wounds are clean, dry, and intact. Should continue to avoid lifting greater than 10 lb for the next week after which he may return to normal activity. He should also continue to remain on a low-fat diet for the next month. He should follow up as needed. Medications: Discontinued oxycodone Partial Fill upon patient request. Discontinued Reason: Patient Completed Course 5 mg PO Q4H PRN 24 tabs 0RF pain (scale score 7-10) Coding Level of Care Code Global (15777) Diagnoses Acute calculous cholecystitis K80.00 S/P laparoscopic cholecystectomy Z90.49
[2024-03-17 15:00] VITALS: BP 144/67; PULSE 80; BMI 27.5
== END 2024-03-17 15:03 | disposition home or self-care (01) ==
PROVIDERS: PCP Internal Medicine; Visit Provider Surgery
DX: K80.00 Calculus of gallbladder with acute cholecystitis without obstruction (principal); Z90.49 Acquired absence of other specified parts of digestive tract
CPT/HCPCS: 99024

== ENCOUNTER → 2024-03-17 14:46 | Outpatient (BNVA) | payer MEDICARE, SELFPAY | PROVIDERS: PCP Internal Medicine; Visit Provider Surgery | DX: Z09 Encounter for follow-up examination after completed treatment for conditions other than malignant neoplasm (principal); Z90.49 Acquired absence of other specified parts of digestive tract | CPT/HCPCS: 99212 ==